=== PATIENT | male | born 1950 | race Caucasian/White ===

== ENCOUNTER 2018-12-14 08:53 | Day surgery (SDC) | payer OTHER ==
[2018-12-13 08:50] VITALS: BMI 25.7
--- NOTE | 2018-12-14 09:00 | HP ---
Satellite [facility] - Chief Complaint Chief Complaint: right arm pain History of Present Illness: right distal biceps tendon rupture History Source: Patient Limitations to Obtaining History: No Limitations - Past Medical History Allergies/Adverse Reactions: Allergies Allergy/AdvReac Type Severity Reaction Status Date / Time aspirin Allergy "hives" Verified 12/13/18 08:56 clear tape Allergy "rash" Uncoded 12/13/18 08:56 - Current Medications Current Medications: Home Medications Medication Instructions Recorded Atorvastatin Ca [Lipitor] 10 mg PO HS 12/13/18 Ibuprofen [Advil -] 200 mg PO PRN PRN 12/13/18 Lisinopril/Hydrochlorothiazide 1 each PO DAILY 12/13/18 [Lisinopril-Hctz 20-12.5 mg Tab] Satellite Physical Exam - Physical Examination General Appearance: Well Nourished ENT: Clear Lung: Clear to auscultation Heart: Regular rate & rhythm Breasts: Soft Abdomen: Soft Extremities: No edema Satellite Impression/Plan - Impression/Plan Impression: right distal biceps tendon rupture Operative Procedure: right distal biceps tendon repair Date to be Performed: 12/14/18
[2018-12-14] MEDS ORDERED: DEXAMETHASONE SOD PHOSPHATE/PF 10 MG/ML SDV ONE (10:46)
[2018-12-14] MEDS ORDERED: BUPIVACAINE HCL/PF 0.5% (5 MG/ML) 30 ML VIAL IJ ONE (10:46)
[2018-12-14] MEDS ORDERED: MIDAZOLAM HCL 2 MG/2 ML SINGLE DOSE VIAL ONE ×2 (10:47)
[2018-12-14] MEDS ORDERED: ceFAZolin SODIUM 1 GM VIAL IVPB ONE (11:21)
[2018-12-14] MEDS ORDERED: PROPOFOL 20 ML ONE ×2 (12:41)
[2018-12-14] MEDS ORDERED: ceFAZolin SODIUM 1 GM VIAL ONE (12:41)
[2018-12-14] MEDS ORDERED: DEXAMETHASONE SOD PHOSPHATE 4 MG/1 ML VIAL ONE (12:41)
--- NOTE | 2018-12-14 13:16 | OP ---
Operative Note - Note: Operative Date: 12/14/18 ([facility] [address]) Pre-Operative Diagnosis: right distal bicep tendon rupture Operation: right distal biceps tendon repair Post-Operative Diagnosis: Same as Pre-op Surgeon: Tre Wilson Digital Marketing Intern: Jc Nobles Anesthesia: General, Local Estimated Blood Loss (mls): 0 (tourniquet) Operative Report Dictated: Yes
[2018-12-14] MEDS ORDERED: oxyCODONE HCL 5 MG TABLET PO PRN (13:55)
[2018-12-14] MEDS ORDERED: ONDANSETRON 4 MG/2 ML VIAL IVPUSH PRN (13:55)
[2018-12-14] MEDS ORDERED: LACTATED RINGERS SOLUTION 1,000 ML IV SCH (14:00)
[2018-12-14 15:03] VITALS: BP 119/63; PULSE 73; TEMP 97.9
--- NOTE | 2018-12-14 17:35 | OP ---
DATE OF OPERATION: 12/14/2018 PREOPERATIVE DIAGNOSIS: Right distal biceps tendon rupture. POSTOPERATIVE DIAGNOSIS: Right distal biceps tendon rupture. PROCEDURE: Right distal biceps tendon repair. SURGEON: Sina Henry MD CLEANING TECHNICIAN: ARIANNE Medrano ANESTHESIA: LMA anesthesia with right interscalene block. NURSE INVESTIGATOR INTERNAL REVENUE: La Sheets, REF-CRN DRAINS: None. COMPLICATIONS: None. SPECIMEN: None. BLOOD LOSS: None. BLOOD GIVEN: None. 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 He ruptured his right distal biceps tendon 4 months ago. After extensive preoperative discussions, he understands the potential risks, complications, alternatives and benefits of surgery, versus non-surgical treatment and he has elected to go forward with surgery. PROCEDURE: The patient was brought to the operating room, peripheral IV placed and IV sedation given. IV Ancef 2 g were given. Right interscalene block was performed. LMA anesthesia was induced and he was placed into the supine position with ample padding throughout. The right upper extremity was then prepped and draped in the usual sterile fashion, elevated, exsanguinated with an Esmarch bandage, tourniquet inflated to 250 mmHg. First I marked out a transverse incision with the knee creased at the antecubital fossa and I angled it up in a curvilinear fashion in the medial border of the biceps. The incision was made with the No. 15 scalpel blade. Subcutaneous hemostasis was achieved with the bipolar cautery. Very careful dissection was done with the Littler scissors in the antecubital fossa taking great care to identify and preserve all crossing neurovascular structures. I was able to identify the distal biceps tendon stump. It had scarred down to the lacertus fibrosis and that was why it did not retract as much proximally as it could have over the past 4 months. I freed it up from scar tissue, as well as any surrounding neurovascular structures, cut the few fibers remaining distally and freed it up with my index finger with the Rodrigez elevator proximally to mobilize the muscle belly and tendon from the surrounding scar tissue. I then freshened up the end and cut off some chronic inflammatory scar tissue. Overall the quality of the tendon was good and I was able to mobilize it with appropriate length. I would not need to use the tendon allograft. Next, I used my finger first to dissect down through the biceps tunnel to the radial tuberosity. I was able to rotate the arm and feel the radial tuberosity to confirm the correct location. I then used a curved blunt tipped Promise forceps to follow my finger down, avoid the ulna, and go by the radial tuberosity and push out the skin to identify the appropriate position for the 2nd incision. I then marked out with the marking pen a 3-inch incision over the Promise clamp. The incision was made with the No. 15 scalpel blade. Subcutaneous hemostasis was achieved with the bipolar cautery. Dissection down to the superficial fascia. This was then incised, dissected through, kept open with the Weitlaner retractor. I continued dissection down to the radial tuberosity. A periosteal elevator was used to do a periosteal dissection, exposing the radial tuberosity. I rotated the arm to confirm this was the correct location. Next, I put a FiberWire suture loop through the Promise clamp, brought it anteriorly. I then put in 2 up and down FiberWire sutures in a locking Krackow fashion through the distal 3 inches of the biceps tendon. Next, I passed the 4 FiberWire tails using the other FiberWire loop through the biceps tunnel distally coming out at the radial tuberosity. I had enough length and overall it would be quite good. The anterior first incision was irrigated, washed out. A 4-0 undyed Vicryl was used to close the deep dermal layer and final skin reapproximation was done with the running subcuticular 4-0 Biosyn stitches and then washed, dried and covered with Steri-Strips. Then using the oval ean, I burred out a crater within the radial tuberosity of the appropriate size based on the tendon stump. I took great care to remove all sharp edges. I then pulled the tendon through and held it down to the crater. It was the appropriate size and length and overall came down quite nicely. I would definitely not need the cadaveric allograft. I then used the 2.0 drill bit to make 2 drill holes in the roof of the radial tuberosity. I then used a Nitinol wire to grab as a passing loop to pass the FiberWires through the holes made in the radial tuberosity roof. The elbow was held in the position of neutral, forearm rotation and about 80 degrees of flexion. The tendon came down quite nicely. I was able to pull it down into the crater made in the radial tuberosity. It filled the crater and overall it was quite good with not too much tension. I then tied the FiberWires to themselves over the posterior bone bridge and then tied the sutures to themselves again as an insurance stitch. The area was copiously irrigated and washed out. I watched the insertion site through flexion and extension and pronation, supination of the forearm and elbow and overall looked very good. The area was copiously irrigated and washed out. A 2-0 Vicryl was used to close the deep extensor fascial layer. A 2-0 Vicryl was then used to close the more superficial extensor fascial layer. A 4-0 undyed Vicryl was used to close the deep dermal layer. Final skin reapproximation was done with a running subcuticular 4-0 Biosyn stitch. The area was then washed and dried, covered with Steri-Strips; 4 x 4's, Webril, and a 5-inch posterior Ortho Glass Splint was applied including the elbow and wrist and wrapped with 2 Aamir bandages. The tourniquet was taken down after total tourniquet time of about 65 minutes. There were no complications during the case. The patient tolerated the procedure quite well, was brought to the ambulatory recovery room in stable condition. SINA HENRY M.D. [id number]
== END 2018-12-14 14:55 | disposition home or self-care (01) ==
LOC: JASU-SURG 08:53
PROVIDERS: ATTEND Orthopaedic Surgery
PROC: 0LM30ZZ Reattachment of Right Upper Arm Tendon, Open Approach (ICD-10-PCS; principal; 2018-12-14 10:00)
DX: S46.211A Strain of muscle, fascia and tendon of other parts of biceps, right arm, initial encounter (principal); Y99.9 Unspecified external cause status; I10 Essential (primary) hypertension
CPT/HCPCS: 94760